=== PATIENT | female | born 1970 | race Caucasian/White ===

== ENCOUNTER 2018-01-12 08:02 | Observation (INO) | payer SELFPAY ==
[2018-01-12 08:12] VITALS: BMI 27.3
[2018-01-12] MEDS ORDERED: ceFAZolin 1 gm in NS 1 GM/100 ML BAG IVPB ONE ×2 (09:00→09:39)
[2018-01-12] MEDS ORDERED: Lidocaine/Epinephrine 1% 1:100000 10 ML IJ ONE ×3 (09:01→09:52)
[2018-01-12] MEDS ORDERED: Lidocaine 1%/Epinephrine 1:100000 30 ml vial IJ ONE (09:19)
[2018-01-12] MEDS ORDERED: Propofol 10 mg/ml Inj (20 ML) ONE (09:28)
[2018-01-12] MEDS ORDERED: Midazolam 2 MG/2 ML VIAL ONE (09:29)
[2018-01-12] MEDS ORDERED: Bupivacaine HCl 0.25% PF (10 ml) Inj ONE (09:55)
[2018-01-12] MEDS: Bupivacaine HCl 0.25% PF (10 ml) Inj ONE ×2 (10:51→12:21)
[2018-01-12] MEDS ORDERED: Neostigmine Methylsulfate 3mg/3ml Syringe IV ONE (11:59)
[2018-01-12] MEDS ORDERED: Lactated Ringer's 1,000 ML IV ONE (12:50)
[2018-01-12] MEDS ORDERED: HYDROmorphone 0.5 mg/0.5 ml ISec IVP PRN (12:54)
--- NOTE | 2018-01-12 12:55 | PCM.SURG1 ---
Surgeon's Initial Post Op Note - Surgeon's Notes Surgeon: Dr. Childress Tree Killer: Dr. Dao, PGY-3 Type of Anesthesia: General Endo Anesthesia Administered By: Dr. Galaivz Pre-Operative Diagnosis: Incisional & Umbilical Hernias Operative Findings: See operative report Post-Operative Diagnosis: Same Operation Performed: Robotic Assisted Repair of Incisional & Umbilical Hernias, Repair of Diastasis & TEP Block Specimen/Specimens Removed: none Estimated Blood Loss: EBL {In ML}: 25 Blood Products Given: N/A Drains Used: No Drains Post-Op Condition: Good Date of Surgery/Procedure: 01/12/18 Time of Surgery/Procedure: 12:54
[2018-01-12 20:11] VITALS: RESP 18
[2018-01-12] MEDS: Oxycodone/Acetaminophen 5/325 mg Tab PO PRN (20:18)
[2018-01-13 00:15] VITALS: TEMP 98.2
--- NOTE | 2018-01-13 01:37 | OP ---
PROCEDURE DATE: 01/12/2018 PREOPERATIVE DIAGNOSES: 1. Incision of hernia. 2. Possible postoperative adhesion. 3. Previous umbilical hernia repair. POSTOPERATIVE DIAGNOSES: 1. Upper abdominal Incisional hernia. 2. Recurrent umbilical hernia. 3. Diastasis of recti. 4. Extensive postoperative adhesions. PROCEDURES: 1. Robotic incisional hernia repair with the mesh. 2. Robotic recurrent umbilical hernia repair with the mesh. 3. Robotic diastasis of recti repair with the mesh. 4. Robotic extensive lysis of adhesion. 5. Laparoscopic bilateral TAP block placement. SURGEON: Neil Childress MD MANAGER CULINARY: Dr. Meade and Dr. Dora Dao, PGY-3 resident. ANESTHESIA: General endotracheal tube anesthesia. ESTIMATED BLOOD LOSS: Around 20 mL. DRAINS: None. PATHOLOGY: None. COMPLICATIONS: None. INTRAOPERATIVE FINDINGS: The patient had an approximately 4x3 cm large incisional hernia of the upper mid abdomen. The patient also had recurrent umbilical hernia with [place] cheese defect and the patient also had diastasis of recti of supraumbilical as well as upper abdominal area and the patient had extensive postoperative adhesions. DESCRIPTION OF PROCEDURE: On intraoperative steps, this is a 47-year-old female who was diagnosed with the incisional hernia of upper abdominal region and the patient also had previous umbilical hernia repair and the patient was consenting for the laparoscopic-assisted robotic incisional hernia repair with mesh with possible open, brought to the OR, placed supine on the operating table, after induction of the anesthesia, the abdomen was prepped and draped in the usual sterile fashion and a 5 mm incision was made in the left upper quadrant using the Visiport technique. The peritoneal cavity was entered, pneumo was created, and another 8-mm port was placed on the left side and the robot was brought in. Camera arm as well as arm 1, arm 2 was docked and another 12 mm port was placed on opposite side and after that first lysis of adhesion was done and the patient had incarcerated omentum and first omentum was reduced into cavity and now the defect was accessed. The upper abdominal incisional hernia was approximately 4 x 3 cm size and the patient also had recurrent umbilical hernia whereas the multiple defects and in between these 2 defects, the patient has diastasis of recti as well as in the upper abdomen and so now the incisional hernia was repaired with #1 Prolene V-Loc sutures in 2 layers. The umbilical hernia defect was also closed with #1 Prolene V-Loc sutures 2 layers and the diastasis of recti was also repaired with the #1 Prolene V-Loc sutures in 2 layers and after that, a large 15 x 10 cm mesh was introduced and the mesh was implanted. After proper implantation of the mesh, bilateral TAP block was given, first on the left side 15 mL of Marcaine was given and on right side 15 mL of Marcaine was given and after that all the port was taken out under vision, pneumo was deflated and all the port sites were closed in two layers, the subcu with the 2-0 Vicryl, skin with 4-0 Monocryl and vascular dressing was applied. The patient tolerated the procedure well. Count of the instrument and gauze was correct. There was no apparent complication. Neil Childress MD MARCELO
[2018-01-13] MEDS: Oxycodone/Acetaminophen 5/325 mg Tab PO PRN ×2 (05:25→10:58)
--- NOTE | 2018-01-13 05:26 | CP.PCM.DIS ---
Provider - Provider Date of Admission: 01/12/18 18:50 Attending physician: Neil Childress MD Primary care physician: General surgery - Dr. Childress Consults: None Time Spent in preparation of Discharge (in minutes): 35 Diagnosis - Discharge Diagnosis (1) S/P robot-assisted surgical procedure Status: Acute (2) History of umbilical hernia repair Status: Acute (3) History of incisional hernia repair Status: Acute (4) Postoperative urinary retention Status: Acute Hospital Course - Hospital Course Hospital Course: 47F w/PMH sig for incisional and umbilical hernia POD#1 s/p robotic assisted incisional and umbilical hernia repair admitted for post operative urinary retention and post op abdominal pain. Pt urinated overnight without intervention, ambulating to bathroom with some discomfort. Encouraged patient to continue ambulating upon assessment. Pt with pain well controlled, stable and ready for discharge home with prescriptions in chart. Diagnoses: s/p robotic repair of incisional and umbilical hernias post op urinary retention - resolved post operative abdominal pain Discharge Exam - Head Exam Head Exam: ATRAUMATIC, NORMAL INSPECTION, NORMOCEPHALIC - Eye Exam Eye Exam: EOMI, Normal appearance - ENT Exam ENT Exam: Mucous Membranes Moist, Normal Exam - Neck Exam Neck exam: Full Rom, Normal Inspection - Respiratory Exam Respiratory Exam: NORMAL BREATHING PATTERN, UNREMARKABLE - Cardiovascular Exam Cardiovascular Exam: REGULAR RHYTHM, +S1, +S2 - GI/Abdominal Exam GI & Abdominal Exam: Soft, Tenderness (slight, over surgical incisions). absent : Distended (obese), Firm, Guarding, Hernia, Rebound, Rigid Additional comments: surgical sites x [address]- clean/dry/intact Abdominal binder in place - Extremities Exam Extremities exam: normal inspection - Neurological Exam Neurological exam: Alert, CN II-XII Intact, Oriented x3 - Psychiatric Exam Psychiatric exam: Normal Affect, Normal Mood - Skin Skin Exam: Dry, Intact, Normal Color, Warm Discharge Plan - Follow Up Plan Condition: GOOD Disposition: HOME/ ROUTINE Additional Instructions: Please take all prescriptions as written. Avoid heavy lifting for 4-6 weeks after the operation. Do not sit in a bath or hot tub. Ok to shower if you cover the bandaids with plastic. Do not remove them until January 17. Underneath the bandaids is a special tape or glue, this will fall off on it's own, do not pull it off. It is ok to shower with either, washing gently with soap and water. Please make an appointment to follow up with Dr. Childress in the office in 1-2 weeks for evaluation. Referrals: Neil Childress MD [Staff Provider] -
[2018-01-13 07:44] VITALS: BP 109/72; PULSE 79; O2SAT 97
== END 2018-01-13 12:30 | disposition home or self-care (01) ==
LOC: C.SDS 08:02 → C.9E 18:50 → C.5S 19:13
PROVIDERS: ADMIT Surgery Surgical Critical Care; ATTEND Surgery Surgical Critical Care
DX: K43.2 Incisional hernia without obstruction or gangrene (principal); K42.9 Umbilical hernia without obstruction or gangrene; K66.0 Peritoneal adhesions (postprocedural) (postinfection); R33.9 Retention of urine, unspecified; G89.18 Other acute postprocedural pain; R10.9 Unspecified abdominal pain
CPT/HCPCS: 22999; 49329; 49652; 49654; 64450; C1781; G0378; J0690; J1170; J1885; J2250; J2405; J2704; J2710; J3010; J7120; S2900

== ENCOUNTER 2019-03-29 09:09 | Outpatient (CLI) | payer OTHER | END 2019-03-29 09:10 | disposition home or self-care (01) | LOC: C.LAB 09:09 | DX: Z13.1 Encounter for screening for diabetes mellitus (principal); M79.604 Pain in right leg ==